=== PATIENT | female | born 1960 | race Caucasian/White ===

== ENCOUNTER 2018-05-21 09:34 | Inpatient (IN) | payer OTHER ==
[2018-05-21 10:22] LABS: ADD MAN DIFF? NO
[2018-05-21] MEDS: ASPIRIN 325 MG TAB PO (10:22)
[2018-05-21] MEDS: SOD CHLORIDE 0.9% 1,000 ML IV ×2 (10:22→12:01)
[2018-05-21 10:24] LABS: BASOPHIL # 0.1 10^3/ul (0.0-0.1); BASOPHILS % 1.3 % (0.0-2.0); EOSINOPHILS # 0.3 10^3/ul (0.0-0.5); EOSINOPHILS % 5.6 % (0.0-7.0); HEMATOCRIT 41.3 % (37.0-47.0); HEMOGLOBIN 13.9 g/dl (12.0-16.0); LYMPHOCYTES # 1.3 10^3/ul (0.8-2.9); LYMPHOCYTES % 22.9 % (15.0-51.0); MEAN CORPUSCULAR HEMOGLOBIN 31.1 pg (29.0-33.0); MEAN CORPUSCULAR HGB CONC 33.7 g/dl (32.0-37.0); MEAN CORPUSCULAR VOLUME 92.4 fl (82.0-101.0); MEAN PLATELET VOLUME 11.8 fl (7.4-10.4); MONOCYTE # 0.4 10^3/ul (0.3-0.9); NEUTROPHIL # 3.5 10^3/ul (1.6-7.5); PLATELET COUNT 180 10^3/UL (140-415); RED BLOOD COUNT 4.47 10^6/ul (4.20-5.40); RED CELL DISTRIBUTION WIDTH 11.9 % (11.5-14.5)
[2018-05-21 10:24] LABS: WHITE BLOOD COUNT 5.6 10^3/ul (4.8-10.8)
[2018-05-21 10:33] LABS: ALANINE AMINOTRANSFERASE 31 IU/L (13-69); ALBUMIN 4.3 g/dl (3.3-4.9); ALKALINE PHOSPHATASE 71 IU/L (42-121); ANION GAP 15 (8-16); ASPARTATE AMINO TRANSFERASE 31 IU/L (15-46); BILIRUBIN,INDIRECT 0.3 mg/dl (0-1.1); BILIRUBIN,TOTAL 0.3 mg/dl (0.2-1.3); BLOOD UREA NITROGEN 12 mg/dl (7-20); CALCIUM 9.8 mg/dl (8.4-10.2); CARBON DIOXIDE 30 mmol/L (21-31); CHLORIDE 105 mmol/L (97-110); CREATININE 0.79 mg/dl (0.44-1.00); GLUCOSE 107 mg/dl (70-220); POTASSIUM 4.2 mmol/L (3.5-5.1); SODIUM 146 mmol/L (135-144); TOTAL PROTEIN 7.6 g/dl (6.1-8.1)
[2018-05-21 10:37] LABS: INR 0.88; PT RATIO 0.9
[2018-05-21 10:44] LABS: TROPONIN-I < 0.012 ng/ml (0.000-0.120)
[2018-05-21] MEDS ORDERED: ONDANSETRON 4 MG INJ IV ×2 (11:30→14:30)
[2018-05-21] MEDS ORDERED: ACETAMINOPHEN 325 MG TAB PO ×2 (11:30→14:30)
[2018-05-21 14:29] LABS: CHOL/HDL RATIO 2.9 RATIO; HDL CHOLESTEROL 62 mg/dl (37-92); LDL CHOLESTEROL,CALCULATED 107 mg/dl; TRIGLYCERIDES 82 mg/dl (0-149)
[2018-05-21 14:29] LABS: CHOLESTEROL 185 mg/dl (100-200)
[2018-05-21] MEDS ORDERED: NACL 0.9% 3 ML SYG IV (14:30)
[2018-05-21] MEDS ORDERED: DOCUSATE SODIUM 100 MG CAP PO (14:30)
[2018-05-21 14:32] LABS: HEMOGLOBIN A1C 5.6 % (0-5.9)
[2018-05-21] MEDS: SODIUM CHLORIDE 0.45% 500 ML BAG IV* (15:31)
[2018-05-21 16:14] LABS: ADD UMIC NO; UR ASCORBIC ACID NEGATIVE (NEGATIVE); UR BILIRUBIN (Dip) NEGATIVE (NEGATIVE); UR BLOOD (Dip) NEGATIVE (NEGATIVE); UR CLARITY CLEAR (CLEAR); UR COLOR COLORLESS (YELLOW); UR GLUCOSE (Dip) NEGATIVE (NEGATIVE); UR KETONES (Dip) NEGATIVE (NEGATIVE); UR LEUKOCYTE ESTERASE (Dip) NEGATIVE Leu/ul (NEGATIVE); UR NITRITE (Dip) NEGATIVE (NEGATIVE); UR SPECIFIC GRAVITY (Dip) 1.008 (1.003-1.030); UR TOTAL PROTEIN (Dip) NEGATIVE (NEGATIVE); UR UROBILINOGEN (Dip) NEGATIVE (NEGATIVE)
[2018-05-21] MEDS ORDERED: IOHEXOL 100 ML (16:54)
[2018-05-21] MEDS ORDERED: SOD CHLORIDE 0.9% 100 ML (16:54)
[2018-05-21] MEDS: ATORVASTATIN 20 MG TAB PO (20:24)
[2018-05-21] MEDS: FAMOTIDINE 20 MG TAB PO (20:24)
[2018-05-21] MEDS: MECLIZINE 12.5 MG TAB PO (20:24)
[2018-05-21] MEDS ORDERED: FAMOTIDINE 20 MG TAB PO (21:00)
[2018-05-21] MEDS ORDERED: ATORVASTATIN 40 MG TAB PO (21:00)
[2018-05-22 06:14] LABS: ADD MAN DIFF? NO
[2018-05-22 06:29] LABS: WHITE BLOOD COUNT 4.5 10^3/ul (4.8-10.8)
[2018-05-22 06:29] LABS: BASOPHILS % 0.9 % (0.0-2.0); EOSINOPHILS # 0.3 10^3/ul (0.0-0.5); EOSINOPHILS % 6.4 % (0.0-7.0); HEMATOCRIT 36.9 % (37.0-47.0); HEMOGLOBIN 12.3 g/dl (12.0-16.0); LYMPHOCYTES % 44.1 % (15.0-51.0); MEAN CORPUSCULAR HEMOGLOBIN 31.1 pg (29.0-33.0); MEAN CORPUSCULAR HGB CONC 33.3 g/dl (32.0-37.0); MEAN CORPUSCULAR VOLUME 93.2 fl (82.0-101.0); MEAN PLATELET VOLUME 12.1 fl (7.4-10.4); MONOCYTE # 0.4 10^3/ul (0.3-0.9); MONOCYTES % 8.6 % (0.0-11.0); NEUTROPHIL # 1.8 10^3/ul (1.6-7.5); NEUTROPHILS % 39.8 % (39.0-77.0); PLATELET COUNT 154 10^3/UL (140-415); RED BLOOD COUNT 3.96 10^6/ul (4.20-5.40); RED CELL DISTRIBUTION WIDTH 11.8 % (11.5-14.5)
[2018-05-22 06:54] LABS: ANION GAP 13 (8-16); BLOOD UREA NITROGEN 13 mg/dl (7-20); CARBON DIOXIDE 28 mmol/L (21-31); CHLORIDE 111 mmol/L (97-110); CREATININE 0.83 mg/dl (0.44-1.00); GLUCOSE 89 mg/dl (70-220); MAGNESIUM 2.1 mg/dl (1.7-2.5); PHOSPHORUS 4.4 mg/dl (2.5-4.9); POTASSIUM 3.8 mmol/L (3.5-5.1); SODIUM 148 mmol/L (135-144)
[2018-05-22] MEDS: ASPIRIN 81 MG TAB PO (09:06)
[2018-05-22] MEDS: MECLIZINE 12.5 MG TAB PO ×3 (09:07→20:23)
[2018-05-22] MEDS: FAMOTIDINE 20 MG TAB PO ×2 (09:07→20:23)
[2018-05-22] MEDS: LISINOPRIL 10 MG TAB PO (09:07)
[2018-05-22] MEDS: SOD CHLORIDE 0.45% 1,000 ML IV ×2 (09:07→20:29)
[2018-05-22] MEDS: ENOXAPARIN 40 MG/0.4 ML SYG SC (09:13)
[2018-05-22] MEDS: ATORVASTATIN 20 MG TAB PO (20:22)
[2018-05-23] MEDS: SOD CHLORIDE 0.45% 1,000 ML IV (06:34)
[2018-05-23 07:20] LABS: ANION GAP 12 (8-16); BLOOD UREA NITROGEN 14 mg/dl (7-20); CALCIUM 8.7 mg/dl (8.4-10.2); CARBON DIOXIDE 28 mmol/L (21-31); CHLORIDE 112 mmol/L (97-110); CREATININE 0.83 mg/dl (0.44-1.00); GLUCOSE 90 mg/dl (70-220); POTASSIUM 4.3 mmol/L (3.5-5.1); SODIUM 148 mmol/L (135-144)
[2018-05-23] MEDS: MECLIZINE 12.5 MG TAB PO ×2 (08:45→12:06)
[2018-05-23] MEDS: ASPIRIN 81 MG TAB PO (08:45)
[2018-05-23] MEDS: FAMOTIDINE 20 MG TAB PO (08:45)
[2018-05-23] MEDS: LISINOPRIL 10 MG TAB PO (08:45)
[2018-05-23] MEDS: ENOXAPARIN 40 MG/0.4 ML SYG SC (09:01)
== END 2018-05-23 15:35 | disposition home or self-care (01) | DRG 149 ==
LOC: E/R 09:34 → 6WM 11:23
DX: H81.90 Unspecified disorder of vestibular function, unspecified ear (principal); F17.213 Nicotine dependence, cigarettes, with withdrawal; E87.5 Hyperkalemia; I10 Essential (primary) hypertension; E78.5 Hyperlipidemia, unspecified; E86.0 Dehydration; R26.0 Ataxic gait; H93.19 Tinnitus, unspecified ear; H54.7 Unspecified visual loss; Z98.2 Presence of cerebrospinal fluid drainage device
CPT/HCPCS: 70450; 70496; 70498; 70551; 71045; 72141; 77021; 80048; 80053; 80061; 81003; 83036; 83735; 84100; 84443; 84484; 85025; 85610; 85730; 92610; 93005; 93306; 96360; 96361; 97161; 99285-25